=== PATIENT | male | born 1975 | race Caucasian/White ===

== ENCOUNTER 2018-06-23 23:53 | Inpatient (IN) ==
[2018-06-24] MEDS ORDERED: ASPIRIN 325 MG TABLET PO STA (00:33)
[2018-06-24] MEDS ORDERED: SODIUM CHLORIDE 0.9% 1,000 ML IV STA (00:33)
[2018-06-24 00:41] LABS: Basophils # 0.1 10*3/uL (0.0-0.2); Basophils % 0.5 % (0.0-0.8); Eosinophils # 0.6 10*3/uL (0.0-0.87); Eosinophils % 4.3 % (0.00-10.9); Hematocrit 50.6 VOL% (42.0-52.0); Hemoglobin 16.5 GM/DL (14.0-18.0); Immature Granulocytes % 0.4 %; Immature Granulocytes Absolute 0.05 #; Lymphocytes % 21.1 % (21.2-54.2); Mean Corpuscular HGB Conc 32.6 GM/DL (32-36); Mean Corpuscular Hemoglobin 31 PG (27-34); Mean Corpuscular Volume 95.3 FL (87-102); Mean Platelet Volume 11.8 FL (9.6-12.0); Monocytes # 0.9 10*3/uL (0.11-0.8); Monocytes % 6.3 % (1.7-12.7); Neutrophils # 9.5 10*3/uL (1.4-7.4); Neutrophils % 67.4 % (38.7-73.9); Platelet Count 154 T/CUMM (130-400); Red Blood Count 5.31 MC/CUMM (3.8-5.5); Red Cell Distribution Width 13.3 % (9.3-17.3); White Blood Count 14.1 T/CUMM (4-12)
[2018-06-24] MEDS ORDERED: NITROGLYCERIN SL 0.4 MG TABLET SL STA (01:55)
[2018-06-24] MEDS ORDERED: fentaNYL 100 MCG/2 ML VIAL IV STA (02:35)
[2018-06-24] MEDS ORDERED: ONDANSETRON 4 MG/2 ML VIAL IV ONE (02:35)
[2018-06-24 02:54] LABS: Albumin 3.7 G/DL (3.4-5.0); Bilirubin,Total 0.4 MG/DL (0.2-1.0); Calcium 9.2 MG/DL (8.5-10.1); Osmolality,Calculated 280.5 MOS/KG (273-304); Potassium 4.6 MMOL/L (3.5-5.1); Total Protein 7.1 G/DL (6.4-8.3)
[2018-06-24] MEDS ORDERED: ENOXAPARIN 30 MG/0.3 ML SYRINGE SUBCUT STA (04:26)
[2018-06-24] MEDS ORDERED: ENOXAPARIN 100 MG/ML SYRINGE SUBCUT ONE (04:51)
[2018-06-24] MEDS ORDERED: ACETAMINOPHEN 325 MG TABLET PO PRN (04:58)
[2018-06-24] MEDS ORDERED: ALBUTEROL 2.5 MG/3 ML NEB RESP TX PRN (04:58)
[2018-06-24] MEDS ORDERED: ALBUTEROL/IPRATROPIUM 3 ML NEB RESP TX PRN (04:58)
[2018-06-24] MEDS ORDERED: ONDANSETRON 4 MG/2 ML VIAL IV PRN (04:58)
[2018-06-24] MEDS ORDERED: ENOXAPARIN 80 MG/0.8 ML SYRINGE SUBCUT ONE (05:30)
[2018-06-24] MEDS ORDERED: DEXTROSE 50% 25 GM/50 ML VIAL IV PRN (05:33)
[2018-06-24] MEDS ORDERED: GLUCAGON 1 MG VIAL IM PRN (05:33)
[2018-06-24 05:34] LABS: Risk Ratio 4.18; VLDL CHOLESTEROL 30.4 MG/DL
[2018-06-24] MEDS: INSULIN REGULAR 100 UNIT/ML SUBCUT SCH ×3 (08:26→17:25)
[2018-06-24] MEDS: PANTOPRAZOLE 40 MG TABLET PO SCH (08:27)
[2018-06-24] MEDS: fentaNYL 100 MCG/2 ML VIAL IV PRN ×2 (08:27→17:30)
[2018-06-24 10:59] LABS: Troponin I Only 0.084 NG/ML (0.00-0.045)
[2018-06-24] MEDS ORDERED: ALTEPLASE 6 MG in SODIUM CHLORIDE 0.9% 120 ML IV SCH (12:00)
[2018-06-24 12:38] LABS: PT Patient Result 10.2 SECS; Partial Thromboplastin Time 31.6 SECS (0-40)
[2018-06-24] MEDS ORDERED: LIDOCAINE 1% 20 ML VIAL ONE (13:09)
[2018-06-24] MEDS ORDERED: MIDAZOLAM 2 MG/2 ML VIAL ONE (13:10)
[2018-06-24] MEDS ORDERED: fentaNYL 100 MCG/2 ML VIAL ONE (13:10)
[2018-06-24] MEDS: SODIUM CHLORIDE 0.9% 1,000 ML IV SCH (13:43)
[2018-06-24] MEDS ORDERED: HYDROmorphone 2 MG/1 ML VIAL ONE (14:07)
[2018-06-24] MEDS ORDERED: SODIUM CHLORIDE 0.9% 1,000 ML IV SCH (14:30)
[2018-06-24] MEDS ORDERED: HEPARIN DRIP 25,000 UNITS/500 ML PREMIX IV SCH ×2 (14:30)
[2018-06-24 15:19] LABS: PT Patient Result 10.4 SECS; Partial Thromboplastin Time 30.9 SECS (0-40)
[2018-06-24] MEDS: LORazepam 2 MG/1 ML VIAL IV PRN ×2 (15:31→19:32)
[2018-06-24] MEDS: SODIUM CHLORIDE 0.45% 1,000 ML IV SCH (17:11)
[2018-06-24] MEDS ORDERED: fentaNYL 100 MCG/2 ML VIAL IV SCH (20:30)
[2018-06-24] MEDS ORDERED: fentaNYL 100 MCG/2 ML VIAL IV PRN (20:30)
[2018-06-24] MEDS: HYDROmorphone 2 MG/1 ML VIAL IV PRN (22:14)
[2018-06-25 00:23] LABS: Partial Thromboplastin Time 48.5 SECS (0-40)
[2018-06-25] MEDS: INSULIN REGULAR 100 UNIT/ML SUBCUT SCH ×5 (00:27→21:35)
[2018-06-25 02:53] LABS: PT Patient Result 10.1 SECS
[2018-06-25 03:04] LABS: Basophils % 0.4 % (0.0-0.8); Eosinophils # 0.4 10*3/uL (0.0-0.87); Eosinophils % 4.7 % (0.00-10.9); Hematocrit 44.1 VOL% (42.0-52.0); Hemoglobin 13.9 GM/DL (14.0-18.0); Immature Granulocytes % 0.3 %; Immature Granulocytes Absolute 0.03 #; Lymphocytes # 1.7 10*3/uL (1.4-4.0); Lymphocytes % 18.1 % (21.2-54.2); Mean Corpuscular HGB Conc 31.5 GM/DL (32-36); Mean Corpuscular Hemoglobin 31 PG (27-34); Mean Corpuscular Volume 97.6 FL (87-102); Mean Platelet Volume 11.6 FL (9.6-12.0); Monocytes # 0.6 10*3/uL (0.11-0.8); Monocytes % 6.6 % (1.7-12.7); Neutrophils # 6.6 10*3/uL (1.4-7.4); Neutrophils % 69.9 % (38.7-73.9); Platelet Count 120 T/CUMM (130-400); Red Blood Count 4.52 MC/CUMM (3.8-5.5); Red Cell Distribution Width 13.2 % (9.3-17.3); White Blood Count 9.4 T/CUMM (4-12)
[2018-06-25 03:14] LABS: Calcium 8.5 MG/DL (8.5-10.1); Osmolality,Calculated 283.1 MOS/KG (273-304); Potassium 4.3 MMOL/L (3.5-5.1)
[2018-06-25] MEDS: HYDROmorphone 2 MG/1 ML VIAL IV PRN ×5 (03:26→21:14)
[2018-06-25] MEDS: RIVAROXABAN 15 MG TABLET PO SCH ×2 (07:44→17:34)
[2018-06-25] MEDS: PANTOPRAZOLE 40 MG TABLET PO SCH (08:13)
[2018-06-25] MEDS: ASPIRIN EC 81 MG TABLET PO SCH (08:13)
[2018-06-25 12:41] LABS: Partial Thromboplastin Time 72.8 SECS (0-40)
[2018-06-25] MEDS: LORazepam 2 MG/1 ML VIAL IV PRN (13:29)
[2018-06-25] MEDS: SODIUM CHLORIDE 0.45% 1,000 ML IV SCH (13:48)
[2018-06-25] MEDS: SODIUM CHLORIDE 0.9% 1,000 ML IV SCH (15:02)
[2018-06-26] MEDS: HYDROmorphone 2 MG/1 ML VIAL IV PRN ×2 (02:07→09:06)
[2018-06-26 03:54] LABS: Basophils % 0.4 % (0.0-0.8); Eosinophils # 0.5 10*3/uL (0.0-0.87); Eosinophils % 5.2 % (0.00-10.9); Hematocrit 39.9 VOL% (42.0-52.0); Hemoglobin 13.2 GM/DL (14.0-18.0); Immature Granulocytes % 0.4 %; Immature Granulocytes Absolute 0.04 #; Lymphocytes # 1.3 10*3/uL (1.4-4.0); Lymphocytes % 12.8 % (21.2-54.2); Mean Corpuscular HGB Conc 33.1 GM/DL (32-36); Mean Corpuscular Hemoglobin 31 PG (27-34); Mean Platelet Volume 11.9 FL (9.6-12.0); Monocytes # 0.7 10*3/uL (0.11-0.8); Monocytes % 7.1 % (1.7-12.7); Neutrophils # 7.7 10*3/uL (1.4-7.4); Neutrophils % 74.1 % (38.7-73.9); Platelet Count 113 T/CUMM (130-400); Red Cell Distribution Width 13.2 % (9.3-17.3); White Blood Count 10.4 T/CUMM (4-12)
[2018-06-26 04:01] LABS: Partial Thromboplastin Time 34.5 SECS (0-40)
[2018-06-26 04:23] LABS: Calcium 8.5 MG/DL (8.5-10.1); Osmolality,Calculated 276.5 MOS/KG (273-304); Potassium 4.1 MMOL/L (3.5-5.1)
[2018-06-26] MEDS: INSULIN REGULAR 100 UNIT/ML SUBCUT SCH ×3 (07:42→16:37)
[2018-06-26] MEDS: PANTOPRAZOLE 40 MG TABLET PO SCH (09:05)
[2018-06-26] MEDS: ASPIRIN EC 81 MG TABLET PO SCH (09:05)
[2018-06-26] MEDS: RIVAROXABAN 15 MG TABLET PO SCH ×2 (09:06→16:45)
[2018-06-26 13:16] LABS: Partial Thromboplastin Time 33.7 SECS (0-40)
[2018-06-26] MEDS ORDERED: FUROSEMIDE 40 MG TABLET PO PRN (13:33)
[2018-06-26] MEDS ORDERED: NIFEdipine 10 MG CAPSULE PO PRN (13:34)
[2018-06-26] MEDS ORDERED: LOSARTAN 50 MG TABLET PO SCH ×2 (14:30)
[2018-06-26 14:55] LABS: Partial Thromboplastin Time 32.1 SECS (0-40)
[2018-06-26] MEDS: VALSARTAN/HCTZ 80-12.5 MG TABLET PO SCH (15:59)
[2018-06-26] MEDS: glipiZIDE 5 MG TABLET PO SCH (16:00)
[2018-06-26] MEDS: CLORAZEPATE 3.75 MG TABLET PO SCH ×2 (16:00→21:04)
[2018-06-27] MEDS: INSULIN REGULAR 100 UNIT/ML SUBCUT SCH ×5 (00:01→21:54)
[2018-06-27 00:28] LABS: Partial Thromboplastin Time 33.4 SECS (0-40)
[2018-06-27] MEDS: HYDROmorphone 2 MG/1 ML VIAL IV PRN (00:31)
[2018-06-27 05:53] LABS: Basophils % 0.4 % (0.0-0.8); Eosinophils # 0.5 10*3/uL (0.0-0.87); Eosinophils % 6.1 % (0.00-10.9); Hematocrit 41.2 VOL% (42.0-52.0); Hemoglobin 13.4 GM/DL (14.0-18.0); Immature Granulocytes % 0.4 %; Immature Granulocytes Absolute 0.03 #; Lymphocytes # 1.5 10*3/uL (1.4-4.0); Lymphocytes % 19.2 % (21.2-54.2); Mean Corpuscular HGB Conc 32.5 GM/DL (32-36); Mean Corpuscular Hemoglobin 31 PG (27-34); Mean Corpuscular Volume 95.8 FL (87-102); Mean Platelet Volume 12.4 FL (9.6-12.0); Monocytes # 0.6 10*3/uL (0.11-0.8); Monocytes % 7.1 % (1.7-12.7); Neutrophils # 5.4 10*3/uL (1.4-7.4); Neutrophils % 66.8 % (38.7-73.9); Platelet Count 120 T/CUMM (130-400)
[2018-06-27 06:16] LABS: Calcium 8.7 MG/DL (8.5-10.1); Osmolality,Calculated 277.4 MOS/KG (273-304); Potassium 3.8 MMOL/L (3.5-5.1)
[2018-06-27] MEDS: CLORAZEPATE 3.75 MG TABLET PO SCH ×3 (06:52→21:58)
[2018-06-27] MEDS ORDERED: LORazepam 0.5 MG TABLET PO PRN (08:43)
[2018-06-27] MEDS ORDERED: HYDROmorphone 2 MG/1 ML VIAL IV PRN (08:43)
[2018-06-27] MEDS: VALSARTAN/HCTZ 80-12.5 MG TABLET PO SCH (09:09)
[2018-06-27] MEDS: RIVAROXABAN 15 MG TABLET PO SCH ×2 (09:09→17:15)
[2018-06-27] MEDS: glipiZIDE 5 MG TABLET PO SCH (09:09)
[2018-06-27] MEDS: ASPIRIN EC 81 MG TABLET PO SCH (09:09)
[2018-06-27] MEDS: PANTOPRAZOLE 40 MG TABLET PO SCH (09:09)
[2018-06-27 12:14] LABS: Partial Thromboplastin Time 30.6 SECS (0-40)
[2018-06-27 15:18] LABS: Partial Thromboplastin Time 33.1 SECS (0-40)
[2018-06-28 06:14] LABS: Basophils % 0.3 % (0.0-0.8); Eosinophils # 0.5 10*3/uL (0.0-0.87); Eosinophils % 7.1 % (0.00-10.9); Hematocrit 40.3 VOL% (42.0-52.0); Hemoglobin 13.6 GM/DL (14.0-18.0); Immature Granulocytes % 0.4 %; Immature Granulocytes Absolute 0.03 #; Lymphocytes # 1.4 10*3/uL (1.4-4.0); Lymphocytes % 18.8 % (21.2-54.2); Mean Corpuscular HGB Conc 33.7 GM/DL (32-36); Mean Corpuscular Hemoglobin 31 PG (27-34); Mean Corpuscular Volume 93.1 FL (87-102); Mean Platelet Volume 11.5 FL (9.6-12.0); Monocytes # 0.5 10*3/uL (0.11-0.8); Neutrophils # 5.1 10*3/uL (1.4-7.4); Neutrophils % 66.4 % (38.7-73.9); Platelet Count 158 T/CUMM (130-400); Red Blood Count 4.33 MC/CUMM (3.8-5.5); Red Cell Distribution Width 13.1 % (9.3-17.3); White Blood Count 7.6 T/CUMM (4-12)
[2018-06-28 06:24] LABS: Osmolality,Calculated 277.5 MOS/KG (273-304); Potassium 3.8 MMOL/L (3.5-5.1)
[2018-06-28] MEDS: CLORAZEPATE 3.75 MG TABLET PO SCH ×3 (06:44→22:15)
[2018-06-28] MEDS: INSULIN REGULAR 100 UNIT/ML SUBCUT SCH ×4 (07:37→22:15)
[2018-06-28] MEDS: RIVAROXABAN 15 MG TABLET PO SCH ×2 (08:04→19:53)
[2018-06-28] MEDS: VALSARTAN/HCTZ 80-12.5 MG TABLET PO SCH (08:04)
[2018-06-28] MEDS: PANTOPRAZOLE 40 MG TABLET PO SCH (08:04)
[2018-06-28] MEDS: glipiZIDE 5 MG TABLET PO SCH (08:05)
[2018-06-28] MEDS: ASPIRIN EC 81 MG TABLET PO SCH (08:05)
[2018-06-28] MEDS: SIMVASTATIN 20 MG TABLET PO SCH (09:04)
[2018-06-28] MEDS: FUROSEMIDE 40 MG TABLET PO SCH (09:04)
[2018-06-28] MEDS: ALBUTEROL/IPRATROPIUM 3 ML NEB RESP TX SCH ×2 (12:48→19:31)
[2018-06-29] MEDS: ALBUTEROL/IPRATROPIUM 3 ML NEB RESP TX SCH ×2 (00:16→07:14)
[2018-06-29] MEDS: CLORAZEPATE 3.75 MG TABLET PO SCH (06:30)
[2018-06-29 07:05] LABS: Basophils # 0.1 10*3/uL (0.0-0.2); Basophils % 0.6 % (0.0-0.8); Eosinophils # 0.5 10*3/uL (0.0-0.87); Eosinophils % 5.2 % (0.00-10.9); Hematocrit 41.4 VOL% (42.0-52.0); Immature Granulocytes % 0.4 %; Immature Granulocytes Absolute 0.04 #; Lymphocytes # 1.4 10*3/uL (1.4-4.0); Lymphocytes % 15.7 % (21.2-54.2); Mean Corpuscular HGB Conc 33.8 GM/DL (32-36); Mean Corpuscular Hemoglobin 32 PG (27-34); Mean Corpuscular Volume 93.2 FL (87-102); Mean Platelet Volume 11.2 FL (9.6-12.0); Monocytes # 0.6 10*3/uL (0.11-0.8); Monocytes % 6.4 % (1.7-12.7); Neutrophils # 6.4 10*3/uL (1.4-7.4); Neutrophils % 71.7 % (38.7-73.9); Platelet Count 173 T/CUMM (130-400); Red Blood Count 4.44 MC/CUMM (3.8-5.5); Red Cell Distribution Width 13.2 % (9.3-17.3)
[2018-06-29 07:34] LABS: Calcium 8.8 MG/DL (8.5-10.1); Osmolality,Calculated 279.5 MOS/KG (273-304); Potassium 3.9 MMOL/L (3.5-5.1)
[2018-06-29] MEDS: INSULIN REGULAR 100 UNIT/ML SUBCUT SCH (08:23)
[2018-06-29] MEDS: VALSARTAN/HCTZ 80-12.5 MG TABLET PO SCH (08:47)
[2018-06-29] MEDS: FUROSEMIDE 40 MG TABLET PO SCH (08:47)
[2018-06-29] MEDS: SIMVASTATIN 20 MG TABLET PO SCH (08:47)
[2018-06-29] MEDS: ASPIRIN EC 81 MG TABLET PO SCH (08:47)
[2018-06-29] MEDS: glipiZIDE 5 MG TABLET PO SCH (08:47)
[2018-06-29] MEDS: PANTOPRAZOLE 40 MG TABLET PO SCH (08:47)
[2018-06-29] MEDS: RIVAROXABAN 15 MG TABLET PO SCH (08:47)
[2018-06-29 11:05] VITALS: BP 124/54
== END 2018-06-29 12:20 | disposition home or self-care (01) | DRG 167 ==
LOC: N.ED 23:53 → N.EDINP 06-24 04:57 → SUATTDRO 06-24 04:57 → N.CC 06-24 05:09 → N.4E 06-28 14:50
PROVIDERS: ADMIT Internal Medicine